=== PATIENT | female | born 1980 | race Caucasian/White ===

== ENCOUNTER → 2022-07-19 | Outpatient (CLI) | payer MEDICAID, SELFPAY ==
--- NOTE | 2022-07-19 09:55 | ART_ITS ---
Reason For Study: Evaluation for Thoracic Outlet Syndrome Procedure A bilateral upper extremity continuous wave Doppler with analog waveform analysis and segmental pressures. Evaluation for Thoracic Outlet Syndrome. Left Segmental Pressures Left brachial= 132mmHg. Left forearm by way of the radial artery = 137mmHg. Left radial= 155mmHg. Left ulnar= 155mmHg. Left digit = 141 mmHg. The left ulnar waveforms are triphasic. The left radial waveforms are triphasic. The left brachial waveforms are triphasic. Right Segmental Pressures Right brachial= 133mmHg. Right forearm pressure by way of the radial artery = 141mmHg. Right radial= 159mmHg. Right ulnar= 165mmHg. Right digit = 134 mmHg. The right ulnar waveforms are triphasic. The right radial waveforms are triphasic. The right brachial waveforms are triphasic. Indices The right wrist-brachial index by radial artery is 1.17. The right wrist-brachial index by ulnar artery is 1.17. The left wrist-brachial index by radial artery is 1.20. The left wrist-brachial index by ulnar artery is 1.24. VL/Upper Extremity Arterial Study Interpretation Summary Right wrist-brachial index 1.17, normal. PVR/Doppler waveforms and digit index normal at baseline. Right arm waveforms severely diminished in symptomatic position. Left wrist brachial index 1.24, normal. PVR/Doppler waveforms and digit index n ormal at baseline. Left arm waveforms normal with maneuvers. Ordering Physician: Herman Curiel Referring Physician: Herman Curiel DO Performed By: Stew uBrk, RVT
== END | disposition home or self-care (01) ==
LOC: CVS 09:53
PROVIDERS: Referring Provider Orthopaedic Surgery; Visit Provider Orthopaedic Surgery
DX: G54.0 Brachial plexus disorders (principal)
CPT/HCPCS: 93923

== ENCOUNTER 2022-08-23 12:56 | Outpatient (RCR) | payer MEDICAID, SELFPAY | END 2022-09-02 23:59 | LOC: NS 12:56 | PROVIDERS: Referring Provider Orthopaedic Surgery; Visit Provider Orthopaedic Surgery | DX: Z71.3 Dietary counseling and surveillance (principal); E66.9 Obesity, unspecified; Z68.43 Body mass index [BMI] 50.0-59.9, adult | CPT/HCPCS: 97802 ==

== ENCOUNTER → 2022-08-24 | Outpatient (CLI) | payer MEDICAID, SELFPAY ==
--- NOTE | 2022-08-24 10:03 | VDUE_ITS ---
Reason For Study: Swelling Right Proximal Left Proximal Right jugular vein is spontaneous, widely Left subclavian vein is spontaneous, widely patent, phasic, with no intraluminal patent, phasic, with no intraluminal echogenicity noted. echogenicity noted. Right subclavian vein is spontaneous, widely patent, phasic, with no intraluminal echogenicity noted. Right Lower Arm Right radial vein is compressible. Right ulnar vein is compressible. Right Arm Right axillary vein is spontaneous, patent, phasic, competent, compressible and demonstrates augmentation. Right brachial vein is compressible. Right cephalic vein is compressible. Right basilic vein is compressible. VL/Venous Duplex US, Unilateral Interpretation Summary Deep veins of the right upper extremity are patent and compressible segmentally . There is no evidence of deep vein thrombosis. Superficial veins of the right upper extremity are patent and compressible segm entally. There is no evidence of superficial vein thrombosis. Ordering Physician: Georgie West Referring Physician: Georgie West Performed By: Stew Burk RVT ???
== END | disposition home or self-care (01) ==
PROVIDERS: Referring Provider Physician Assistant; Visit Provider Physician Assistant
DX: M79.601 Pain in right arm (principal); M79.89 Other specified soft tissue disorders
CPT/HCPCS: 93971

== ENCOUNTER → 2022-08-27 | Outpatient (CLI) | payer MEDICAID, SELFPAY ==
[2022-08-24 11:27] LABS: EST Glomerular Filtration Rate 98 mL/min (>60); Est Glom Filt Rate - Afr Amer 119 mL/min (>60)
--- NOTE | 2022-08-27 08:16 | MRI_ITS ---
INDICATION: pain EXAMINATION: MRI - LEFT MR Knee W/O Contrast TECHNIQUE: Multiplanar and multisequence MR images of the LEFT knee. IV Contrast Dosage and Agent: None. COMPARISON: None. FINDINGS: BONE: There is a mild osteoarthritis in the medial lateral compartments. There is severe chondromalacia and joint space narrowing subjacent to the lateral patellar facet. JOINT: There is a moderate suprapatellar joint effusion extending to the superior lateral lateral recess. Within this region there are findings consistent with either multiple foci of hemorrhage or loose bodies. These measure up to 1 cm AP by 0.7 cm transverse. Synovial proliferation would BE an additional consideration. MUSCLES: Unremarkable. MENISCI: Mild myxoid change posterior horn. Anterior horn medial meniscus is intact. Lateral meniscus normal. CRUCIATE LIGAMENTS: Anterior and posterior cruciate ligaments are intact. COLLATERAL LIGAMENTS: Medial collateral ligament and lateral collateral ligamentous complex, inclusive of the popliteal tendon, are intact. CARTILAGE: Articular cartilage intact. OTHER SOFT TISSUES: Moderate subcutaneous edema anterior to the distal patellar tendon. MRI/Lower Ext Joint Only (Routine) IMPRESSION: Joint effusion extending into the suprapatellar bursa laterally with multiple loose bodies or foci of hemorrhage within this joint effusion. Subcutaneous edema anterior to the distal patellar tendon. Tricompartmental chondromalacia and osteoarthritis as above. Electronically Signed: Marquis Acosta MD, FLAKO at 12:41 EDT ,
== END | disposition home or self-care (01) ==
LOC: MRI 08:07
PROVIDERS: Physician Assistant; Visit Provider Orthopaedic Surgery
DX: M23.92 Unspecified internal derangement of left knee (principal); G54.0 Brachial plexus disorders; I10 Essential (primary) hypertension
CPT/HCPCS: 36415; 73721; 82565

== ENCOUNTER → 2022-09-12 | Outpatient (CLI) | payer MEDICAID, SELFPAY ==
--- NOTE | 2022-09-12 17:46 | CT_ITS ---
EXAM: CT ANGIOGRAPHY CHEST WITHOUT AND WITH INTRAVENOUS CONTRAST CLINICAL INDICATION: Possible thoracic outlet syndrome, right-sided -- Please place IV/inject left arm to reduce artifact TECHNIQUE: Helically acquired angiography images were obtained of the chest without and with intravenous contrast. This CT exam was performed using one or more of the following dose reduction techniques: automated exposure control, adjustment of the mA and/or kV according to patient size, and/or use of iterative reconstruction technique. This report was created using [email or web address] report generation technology. MIP reconstructed images were created and reviewed. CONTRAST: 100 cc of Isovue-370 IV. RADIATION DOSE: CTDIvol = 17.41 mGy, DLP = 540.04 mGy-cm. COMPARISON: None. FINDINGS: PULMONARY ARTERIES: Unremarkable. Normal in caliber. No evidence of pulmonary embolism. AORTA: Unremarkable. Normal in caliber. No evidence of dissection. GREAT VESSELS OF AORTIC ARCH: Unremarkable. Normal in caliber. No evidence of dissection. LUNGS AND PLEURAL SPACES: Unremarkable. No mass. No consolidation or edema. No pleural effusion or thickening. No pneumothorax. HEART: Coronary artery calcifications. No pericardial effusion. No signs of right heart strain, ratio of right ventricle to left ventricle measures less than 1. MEDIASTINUM: Unremarkable. No mediastinal or hilar adenopathy. Esophagus is unremarkable. No hiatal hernia. THYROID: Unremarkable. No thyroid lesions. BONES/JOINTS: Unremarkable. No suspicious lytic or blastic abnormality. CT/CTA Chest W/WO Contrast IMPRESSION: 1. No pulmonary embolism or dissection. 2. Coronary artery disease. Electronically Signed: Jose Ceballos MD at 23:11 EDT ,
== END | disposition home or self-care (01) ==
LOC: CT 17:45
PROVIDERS: Referring Provider Physician Assistant; Visit Provider Physician Assistant
DX: G54.0 Brachial plexus disorders (principal)
CPT/HCPCS: 71275; Q9967

== ENCOUNTER 2022-12-30 17:35 | Emergency (ER) | payer MEDICAID, SELFPAY ==
[2022-12-30 17:36] VITALS: BP 130/74; PULSE 73; RESP 18; TEMP 36.2; O2SAT 99; BMI 58.1
--- NOTE | 2022-12-30 19:01 | RAD_ITS ---
INDICATION: injury EXAMINATION/TECHNIQUE: X-RAY - LEFT XR Elbow Min 3 Views COMPARISON: None FINDINGS: SOFT TISSUES: No soft tissue swelling or gas. No radiopaque foreign body. BONES/JOINTS: There is no displacement of the anterior or posterior fat pads. No acute fracture or subluxation. Normal alignment. Preservation of the joint space. No sclerotic or destructive changes observed. RAD/Elbow min 3 Views IMPRESSION: Negative. Electronically Signed: Alex Fisher MD at 19:43 EDT ,
[2022-12-30] MEDS: Ketorolac 15 MG/ML Vial 30 MG IM (19:09)
--- NOTE | 2022-12-30 19:18 | RAD_ITS ---
INDICATION: Injury, left shoulder pain EXAMINATION/TECHNIQUE: X-RAY - LEFT XR Shoulder Min 2 Views 2 VIEWS COMPARISON: None FINDINGS: SOFT TISSUES: No soft tissue swelling or gas. No radiopaque foreign body. BONES/JOINTS: No acute fracture or subluxation. The humeral head is seated within the acetabulum. Coracoclavicular and acromioclavicular relationships are maintained. No sclerotic or destructive changes observed. RAD/Shoulder min 2 Views IMPRESSION: No acute abnormal finding. Exam complicated by photon starvation. Electronically Signed: Alex Fisher MD at 19:42 EDT ,
--- NOTE | 2022-12-30 19:26 | EDS_ITS ---
HPI <BRYNN Giraldo - Last Filed: 12/30/22 20:02> History of Present Illness Chief Complaint: Fall Narrative Narrative: Patient presenting today for evaluation after a mechanical fall that occurred this evening. She was try to get into her bathtub when her left foot caught the edge of the bathtub and she fell inside, catching herself with an outstretched left hand but hitting her elbow at the bottom of the bathtub. She reports pain to her left elbow, left shoulder, left side of her neck, and left side of her back. She denies hitting her head and there was no loss of consciousness. She is not on any blood thinner. She denies any other injury. [facility] <BRYNN Giraldo - Last Filed: 12/30/22 20:02> [facility] Medical History Cervical radiculopathy Cervical strain Home Medications metaxalone 400 mg tablet 400 mg PO TID PRN muscle pain #30 tabs 05/25/22 [Rx Last Taken Unknown] cyclobenzaprine 10 mg tablet 10 mg PO TID PRN muscle spasm 06/15/22 [History Last Taken Unknown] gabapentin 400 mg capsule (Neurontin) 400 mg PO DAILY 06/15/22 [History Last Taken Unknown] hydroxychloroquine 200 mg tablet (Plaquenil) 200 mg PO BID 06/15/22 [History Last Taken Unknown] lisinopril 10 mg tablet 10 mg PO DAILY 06/15/22 [History Last Taken Unknown] lorazepam 1 mg tablet (Ativan) 1 mg PO DAILY PRN 06/15/22 [History Last Taken Unknown] propranolol 80 mg capsule,extended release 24 hr (Inderal XL) 80 mg PO DAILY 06/15/22 [History Last Taken Unknown] verapamil 120 mg 24 hr capsule,extended release 120 mg PO DAILY 06/15/22 [History Last Taken Unknown] hydrocodone-acetaminophen 5-325mg 5mg-325mg 1 tab PO Q4H PRN PRN Pain 3 days #10 TABLETS 12/30/22 [Rx Last Taken Unknown] Allergy/AdvReac Type Severity Reaction Status Date / Time Penicillins Allergy Severe Hives Verified 09/29/22 13:26 Surgical History H/O hernia repair Hx of cholecystectomy Status post right knee replacement Social History Smoking Status: Never smoker alcohol intake: current alcohol intake frequency: holidays/special occasions only substance use type: does not use ROS <BRYNN Giraldo - Last Filed: 12/30/22 20:02> ROS ED Constitutional Constitutional ED: Denies chills or fever(s) Eyes Eyes: Denies change in vision Cardiovascular Cardiovascular: Denies chest pain or palpitations Respiratory/Chest Respiratory/Chest: Denies cough or dyspnea Gastrointestinal Gastrointestinal: Denies abdominal pain, nausea or vomiting Genitourinary Genitourinary ED: Denies dysuria, hematuria or urinary urgency Musculoskeletal Musculoskeletal: Reports arthralgias, back pain, myalgias and neck pain Integumentary Denies Abrasions Neurologic Neurologic: Denies headache(s), paresthesias or weakness EXAM <BRYNN Giraldo - Last Filed: 12/30/22 20:02> Physical Exam Const Vital Signs: 12/30/22 17:36 12/30/22 18:48 12/30/22 20:23 Temperature 97.1 F L Temperature Source Temporal Pulse Rate 73 80 Respiratory Rate 18 16 Respiratory Effort Normal Non-Labored Blood Pressure 130/74 H 128/74 H Blood Pressure Mean 92 92 Pulse Ox 99 98 Oxygen Delivery Method Room Air Room Air Room Air Positive well nourished, well developed and no apparent distress General Appearance ED: well developed HEENT Reports normocephalic and head/scalp atraumatic Mouth ED: Yes moist mucous membranes normal Eyes PERRL and EOMs intact bilaterally Neck full ROM and supple Neck Narrative: Left-sided trapezius muscle tenderness to palpation. No midline cervical tenderness to palpation Chest Wall inspection of chest normal Resp normal respiratory effort and clear to auscultation bilaterally Cardio regular rate and regular rhythm GI soft to palpation, non-tender, non-distended and no masses Back/Spine normal ROM, normal to inspection and no thoracic nor lumbar tenderness Back/Spine Narrative: Left-sided thoracic paraspinal muscle tenderness to palpation No midline tenderness to the thoracic or lumbar spine. Extremity normal to inspection Extremity Narrative: Pain to palpation to the left elbow with limited range of motion due to pain, pain to palpation to the left shoulder with limited range of motion due to the pain. Radial pulses 2+ and equal bilaterally, good capillary refill, sensation intact distally. Neuro oriented x3, CN's II-XII intact bilaterally, moves all extremities, no focal motor deficits and no sensory deficits noted Sensorium / Orientation: awake and alert Psych mental status grossly normal and thought process normal Skin no rashes or lesions noted and no wounds <Dr. Jose Durham MD - Last Filed: 12/30/22 23:36> Physical Exam Const Vital Signs: 12/30/22 17:36 12/30/22 18:48 12/30/22 20:23 Temperature 97.1 F L Temperature Source Temporal Pulse Rate 73 80 Respiratory Rate 18 16 Respiratory Effort Normal Non-Labored Blood Pressure 130/74 H 128/74 H Blood Pressure Mean 92 92 Pulse Ox 99 98 Oxygen Delivery Method Room Air Room Air Room Air MDM <BRYNN Giraldo - Last Filed: 12/30/22 20:02> [facility] Narrative Medical decision making narrative: Patient presenting for evaluation after a mechanical fall that occurred earlier this evening while she was try to get into a bathtub. She is pain to her left elbow, left shoulder, neck, and back. Left elbow is painful to palpation with limited range of motion, left shoulder also painful to palpation with limited range of motion due to the pain. Patient does not have any midline cervical, thoracic, lumbar, or sacral spine tenderness. She does have left sided trapezius tenderness to her neck as well as left paraspinal tenderness to her thoracic spine. She was given Toradol here for pain and x-ray of the left shoulder and left elbow obtained to rule out fracture and dislocation. She did not hit her head, there was no loss of consciousness. X-ray of the left elbow interpreted by the attending ED physician does show a small fracture, radiologist did not interpret this. However, she will be given orthopedic follow-up and a sling. She has been given RICE instructions and will be given a prescription for [place] as well. She has been given additional pain control here and will be discharged with stable condition. She is comfortable with plan. Radiography X-Ray: Read by ED Physician and Read by Radiologist Diagnostic Testing: Clinical Impression(s) from Imaging Studies Elbow X-Ray 12/30/22 19:01 IMPRESSION: Negative. Electronically Signed: Alex Fisher MD at 19:43 EDT , Shoulder X-Ray 12/30/22 19:18 IMPRESSION: No acute abnormal finding. Exam complicated by photon starvation. Electronically Signed: Alex Fisher MD at 19:42 EDT , <Dr. Jose Durham MD - Last Filed: 12/30/22 23:36> [facility] Narrative Medical decision making narrative: Patient presenting for evaluation after a mechanical fall that occurred earlier this evening while she was try to get into a bathtub. She is pain to her left elbow, left shoulder, neck, and back. Left elbow is painful to palpation with limited range of motion, left shoulder also painful to palpation with limited range of motion due to the pain. Patient does not have any midline cervical, thoracic, lumbar, or sacral spine tenderness. She does have left sided trapezius tenderness to her neck as well as left paraspinal tenderness to her thoracic spine. She was given Toradol here for pain and x-ray of the left shou lder and left elbow obtained to rule out fracture and dislocation. She did not hit her head, there was no loss of consciousness. X-ray of the left elbow interpreted by the attending ED physician does show a small fracture, radiologist did not interpret this. However, she will be given orthopedic follow-up and a sling. She has been given RICE instructions and will be given a prescription for [place] as well. She has been given additional pain control here and will be discharged with stable condition. She is comfortable with plan. Patient seen and evaluated with MERE. I personally interviewed and examined the patient. I was involved in all aspects of patient's orders, interpretation of results, and treatment. Patient presents after mechanical fall. She injured her left elbow. 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 She has pain to palpation over the radial head. Axillary, median, radial and ulnar function intact. There is minimal discomfort over the medial lateral epicondyle. Is no pain the patient over the olecranon process. She also has pain outpatient over the arm. Patient is reluctant to use the left upper extremity. Three-view x-ray of the elbow and three-view x-ray of the shoulder were obta ined. The shoulder x-ray reveals no fracture, subluxation or dislocation. There is no evidence of fracture of the clavicle or proximal humerus. Three-view x-ray of the elbow reveals a small avulsion fracture of the coronoid process. There appears to be 6 slight anterior fat pad. There is no posterior fat-pad. This is where she is tender. As patient is reluctant to supinate pronate or extend suspect that she has a small avulsion fracture. Patient was placed in sling and swath and referred to orthopedist on-call, Dr. Jose Chavez Radiography Diagnostic Testing: Clinical Impression(s) from Imaging Studies Elbow X-Ray 12/30/22 19:01 IMPRESSION: Negative. Electronically Signed: Alex Fisher MD at 19:43 EDT , Shoulder X-Ray 12/30/22 19:18 IMPRESSION: No acute abnormal finding. Exam complicated by photon starvation. Electronically Signed: Alex Fisher MD at 19:42 EDT , Discharge Plan Triage Chief Complaint: Fall ED Midlevel Provider: Yoselin Bridges ED Provider: Jose Durham Dx/Rx/DC Orders Clinical Impression: Elbow fracture, left, Neck muscle strain, Contusion of left shoulder, Strain of thoracic back region, Fall Instructions: ED Elbow Fracture Prescriptions: New hydrocodone-acetaminophen 5-325 mg tablet 1 tab PO Q4H PRN PRN (Reason: Pain) 3 Days Qty: 10 0RF No Action metaxalone 400 mg tablet 400 mg PO TID PRN (Reason: muscle pain) Qty: 30 0RF verapamil 120 mg capsule,ext rel. pellets 24 hr 120 mg PO DAILY gabapentin [Neurontin] 400 mg capsule 400 mg PO DAILY hydroxychloroquine [Plaquenil] 200 mg tablet 200 mg PO BID Inderal XL 80 mg capsule,extended release 24hr 80 mg PO DAILY lisinopril 10 mg tablet 10 mg PO DAILY cyclobenzaprine 10 mg tablet 10 mg PO TID PRN (Reason: muscle spasm) lorazepam [Ativan] 1 mg tablet 1 mg PO DAILY PRN Primary Care Provider: PodlogRebecca neely NP Referrals: Jose Chavez DO [Med Staff - Active Staff] - 5-7 Days PodRebecca granda NP, [facility] [Primary Care Provider] - Activity Restrictions/Additional Instructions: Please ice your elbow several times a day for the next few days. Follow-up with orthopedics. Disposition Disposition: Home, Self Care Discharge Date/Time: 12/30/22 20:24
[2022-12-30] MEDS: HYDROcodone Bitartrate/Apap 5/325 Tablet PO (20:15)
[2022-12-30 20:23] VITALS: BP 128/74; PULSE 80; RESP 16; O2SAT 98
== END 2022-12-30 20:24 | disposition home or self-care (01) ==
PROVIDERS: Emergency Provider Emergency Medicine; PCP Nurse Practitioner Primary Care; Visit Provider Emergency Medicine
DX: S42.402A Unspecified fracture of lower end of left humerus, initial encounter for closed fracture (principal); S16.1XXA Strain of muscle, fascia and tendon at neck level, initial encounter; S40.012A Contusion of left shoulder, initial encounter; S39.012A Strain of muscle, fascia and tendon of lower back, initial encounter; W19.XXXA Unspecified fall, initial encounter
CPT/HCPCS: 73030; 73080; 96372; 99282

== ENCOUNTER 2023-02-27 20:21 | Emergency (ER) | payer MEDICAID, SELFPAY ==
[2023-02-27 20:22] VITALS: BP 168/99; PULSE 77; RESP 20; TEMP 36.3; O2SAT 100; BMI 58.6
--- NOTE | 2023-02-27 20:30 | RAD_ITS ---
STUDY: X-RAY CHEST REASON FOR EXAM: Female, 43 years old. SOB TECHNIQUE: PA and lateral views of the chest. COMPARISON: None. FINDINGS: The lungs are clear and expanded. There is no demonstrated pleural abnormality. Normal size heart. Normal mediastinum and chari. Normal visualized pulmonary arteries. Normal visualized aortic arch and descending thoracic aorta. Normal visualized thoracic spine. Normal visualized ribs, clavicles, and shoulders. There is no demonstrated abnormality of the visualized soft tissue structures of the upper abdomen. RAD/Chest PA and Lateral IMPRESSION: Normal x-ray examination of the chest. Electronically Signed: Anthony Barriga MD at 20:58 EDT ,
--- NOTE | 2023-02-27 21:56 | EDS_ITS ---
HPI History of Present Illness Chief Complaint: Shortness of Breath [facility] Medical History (Updated 02/09/23 @ 09:51 by Alex George MD) Cervical radiculopathy Cervical strain Left elbow pain Left shoulder pain Home Medications gabapentin 400 mg capsule (Neurontin) 400 mg PO DAILY 06/15/22 [History Last Taken Unknown] hydroxychloroquine 200 mg tablet (Plaquenil) 200 mg PO BID 06/15/22 [History Last Taken Unknown] lisinopril 10 mg tablet 10 mg PO DAILY 06/15/22 [History Last Taken Unknown] propranolol 80 mg capsule,extended release 24 hr (Inderal XL) 80 mg PO DAILY 06/15/22 [History Last Taken Unknown] verapamil 120 mg 24 hr capsule,extended release 120 mg PO DAILY 06/15/22 [History Last Taken Unknown] hydrocodone-acetaminophen 5-325mg 5mg-325mg 1 tab PO Q4H PRN PRN Pain 3 days #10 TABLETS 12/30/22 [Rx Last Taken Unknown] lorazepam 1 mg tablet 1 mg PO DAILY PRN 02/09/23 [History Last Taken Unknown] pramipexole 0.5 mg tablet (Mirapex) 0.5 mg PO QHS 02/09/23 [History Last Taken Unknown] venlafaxine 75 mg capsule,extended release 24 hr mg PO 02/09/23 [History Last Taken Unknown] Allergy/AdvReac Type Severity Reaction Status Date / Time Penicillins Allergy Severe Hives Verified 02/27/23 20:24 Surgical History H/O hernia repair Hx of cholecystectomy Status post right knee replacement Social History Smoking Status: Never smoker alcohol intake: current alcohol intake frequency: holidays/special occasions only substance use type: does not use EXAM Physical Exam Const Vital Signs: 02/27/23 20:22 02/27/23 21:36 02/27/23 20:24 Temperature 97.4 F L Temperature Source Temporal Pulse Rate 77 Respiratory Rate 20 H Respiratory Effort Normal Blood Pressure 168/99 H Blood Pressure Mean 122 Pulse Ox 100 Oxygen Delivery Method Room Air Room Air Room Air 02/27/23 22:42 Temperature Temperature Source Pulse Rate Respiratory Rate Respiratory Effort Blood Pressure Blood Pressure Mean Pulse Ox Oxygen Delivery Method Room Air MDM MDM MDM Narrative Medical decision making narrative: HISTORY OF PRESENT ILLNESS: 43-year-old female here with acute onset of shortness of breath. States this happened approximately 2 hours prior to arrival notes acute shortness of breath and chest tightness. Denies chest pain at this time. States symptoms have improved. States she got really worked up. The patient denies recent surgery in the last 4 weeks or immobilization in the last 3 days, denies previous diagnosis of DVT or PE, hemoptysis, unilateral leg swelling or malignancy with treatment the last 6 months or palliative. No estrogen use noted. She is a non-smoker. She denies any bleeding diathesis. Denies any vomiting. Denies recent illnesses. Denies any sick contacts REVIEW OF SYSTEMS: Pertinent positives: Shortness of breath, chest tightness Pertinent negatives: Abdominal pain, vomiting, focal weakness, unilateral leg swelling PHYSICAL EXAM: Nursing triage notes reviewed, Vital signs reviewed Constitutional: please see [facility] HENT: MMM Eyes: Pupils equal round and reactive to light, Extraocular muscles intact Neck: No stridor, no JVD, full neck ROM Lungs: Clear to auscultation, No wheezing or rales. No increased work of breathing, no conversational dyspnea, no accessory muscle use, no nasal flaring. No respiratory distress noted Heart: Regular rate and rhythm, No murmurs, No rubs and No gallops, 2+ distal pulses (radial, femoral, posterior tibial) in all extremities Abdomen: Soft, there is no tenderness, rigidity, rebound or guarding, no obvious peritoneal signs, no palpable pulsatile abdominal masses, no auscultated abdominal bruit : No CVAT Extremities: No edema Neuro: Alert and oriented x3, neuro exam at baseline, cranial nerves II through XII are intact. No pain with extraocular muscle movement. There is negative test of skew. 5 of 5 strength in upper and lower extremities in flexion extension. Intact sensation to light touch in upper and lower extremity dermatomes. No truncal or extremity ataxia. No dysdiadochokinesia. Normal gait. 2+ reflexes in upper and lower extremities. No meningeal signs. Negative Babinski. NIH of 0. Skin: No rash or lesions noted MEDICAL DECISION MAKING: Chief Complaint: Shortness of breath External records reviewed: Imaging reviewed: CT of the chest from September 2022 shows no PE or dissection Factors affecting care: Hypertension, history of PCOS, anxiety Sjogren's syndrome and fibromyalgia Social determinants of health: Denies smoking History obtained from others: Patient's Consults: none MDM Narrative: Patient was hemodynamically stable, afebrile, nontoxic-appearing. Lungs were clear. I considered the following differential diagnosis: Pneumonia, PE, CHF, ACS, arrhythmia, anemia I considered pulmonary embolism however patient lower as well score and as such have a low suspicion for PE. ALL IMAGES (IF OBTAINED) HAVE BEEN PERSONALLY REVIEWED AND INTERPRETED BY MYSELF. EKG with normal sinus rhythm, normal axis, no intervals, no STEMI Chest x-ray by my read shows no evidence of pneumonia, pneumothorax or heart failure CBC with leukocytosis suggestive of systemic inflammation, no anemia or thrombocytopenia noted BMP with hyponatremia, no other significant electrolyte abnormalities, no anion gap to suggest endorgan hypoperfusion, no MIKE Troponin is negative, no evidence of myocardial ischemia COVID-negative I have personally reviewed the patient's chest x-ray. Chest x-ray is unremarkable for pulmonary edema, pneumothorax, pneumonia or focal cardiopulmonary abnormality. The amalgamation of the patient's labs images do not suggest a life or limb threatening process. Patient is appropriate for discharge home with close PCP and outpatient follow-up. The patient and/or family, caregivers express understanding. The patient and/or family, caregivers agrees with the plan. Shared decision making: I will have a discussion with the patient and or visitors regarding risk/benefits of further testing or admission. They will be made aware of of the risk/benefits inherent in this decision they will be given the opportunity to voice understanding. Total critical care time today provided was at least 0 minutes. This excludes separately billable procedures. Critical care time (if documented) is secondary to the patient having high probability of clinically significant/life threatening deterioration in the patient's condition which required my urgent intervention. Impression: 1. Dyspnea 2. Leukocytosis 3. Hyponatremia Dispo: Discharge Lab Data Labs: Laboratory Results - last 24 hr 02/27/23 22:32 WBC 12.1 H RBC 4.42 Hgb 12.9 Hct 39.0 MCV 88.2 MCH 29.2 MCHC 33.1 RDW Std Deviation 46.0 H RDW Coeff of Tiki 14.2 Plt Count 365 MPV 8.7 Immature Gran % (Auto) 0.200 Neut % (Auto) 66.4 Lymph % (Auto) 24.9 [place] % (Auto) 6.5 Eos % (Auto) 1.6 Baso % (Auto) 0.4 Absolute Neuts (auto) 8.0 H Absolute Lymphs (auto) 3.01 Nucleated RBC % 0 Sodium 135 L Potassium 3.8 Chloride 100 Carbon Dioxide 30.0 Anion Gap 5 BUN 15 Creatinine 0.94 Estim Creat Clear Calc 68.01 Est GFR (MDRD) Af Amer 84 Est GFR (MDRD) Non-Af 70 BUN/Creatinine Ratio 16.0 Glucose 105 Calcium 9.1 Troponin I High Sens 19 Radiography Diagnostic Testing: Clinical Impression(s) from Imaging Studies Chest X-Ray 02/27/23 20:30 IMPRESSION: Normal x-ray examination of the chest. Electronically Signed: Anthony Barriga MD at 20:58 EDT , Discharge Plan Triage Chief Complaint: Shortness of Breath ED Provider: Sg Velez Dx/Rx/DC Orders Prescriptions: No Action verapamil 120 mg capsule,ext rel. pellets 24 hr 120 mg PO DAILY gabapentin [Neurontin] 400 mg capsule 400 mg PO DAILY hydroxychloroquine [Plaquenil] 200 mg tablet 200 mg PO BID Inderal XL 80 mg capsule,extended release 24hr 80 mg PO DAILY lisinopril 10 mg tablet 10 mg PO DAILY lorazepam 1 mg tablet 1 mg PO DAILY PRN venlafaxine 75 mg capsule,extended release 24hr PO Patient Comments: take 1 capsule by mouth once daily pramipexole [Mirapex] 0.5 mg tablet 0.5 mg PO QHS hydrocodone-acetaminophen 5-325 mg tablet 1 tab PO Q4H PRN PRN (Reason: Pain) 3 Days Qty: 10 0RF Primary Care Provider: Rebecca Mcintyre NP Referrals: Rebecca Mcintyre NP, [employer] [employer] [Primary Care Provider] -
[2023-02-27 22:45] LABS: Absolute Lymphocyte Count 3.01 X10^3/uL (0.83-4.51); Basophil# 0.05 X10^3/uL; Basophil% 0.4 % (0-1); Eosinophil# 0.19 X10^3/uL; Eosinophils% 1.6 % (0-5); Hemoglobin 12.9 g/dL (12.0-15.0); Lymphocyte # 3.01 X10^3/ul (0.83-4.51); Lymphocyte % 24.9 % (19-41); Mean Corp Hgb Conc 33.1 g/dL (32-36); Mean Corpuscular Hgb 29.2 pg (27.0-32.0); Mean Corpuscular Volume 88.2 fL (81-99); Mean Platelet Vol. 8.7 fl (6.2-12.0); Monocyte# 0.79 X10^3/uL; Monocyte% 6.5 % (0-10); NRBC Flagged by Analyzer 0 % (0-5); Neutrophil # 8.01 X10^3/uL (2.7-7.7); Neutrophil % 66.4 % (47-70); Platelet Count 365 K/mm3 (150-450); RBC Distribution Width CV 14.2 % (11.6-14.6); Red Blood Count 4.42 M/mm3 (4.2-5.4); White Blood Count 12.1 K/mm3 (4.4-11.0)
[2023-02-27 23:15] LABS: Anion Gap 5 (5-15); BUN 15 mg/dL (7-18); Calcium,Total 9.1 mg/dL (8.5-10.1); Chloride 100 mmol/L (98-107); Creatinine, Serum 0.94 mg/dL (0.55-1.02); EST Glomerular Filtration Rate 70 mL/min (>60); Est Glom Filt Rate - Afr Amer 84 mL/min (>60); Estimated Creatinine Clearance 68.01 ml/min; Glucose 105 mg/dL (74-106); Potassium 3.8 mmol/L (3.5-5.1); Sodium Level 135 mmol/L (136-145); Troponin-I HS 19 pg/mL (3.0-54.0)
[2023-02-28 00:18] VITALS: PULSE 88; RESP 16; O2SAT 100
== END 2023-02-28 00:19 | disposition home or self-care (01) ==
PROVIDERS: Emergency Provider Emergency Medicine; PCP Nurse Practitioner Primary Care; Visit Provider Emergency Medicine
DX: R06.00 Dyspnea, unspecified (principal); D72.829 Elevated white blood cell count, unspecified; E87.1 Hypo-osmolality and hyponatremia
CPT/HCPCS: 71046; 80048; 84484; 85025; 87811; 93005; 99283

== ENCOUNTER → 2023-08-17 | Outpatient (CLI) | payer MEDICAID, SELFPAY ==
--- NOTE | 2023-08-17 15:26 | MRI_ITS ---
STUDY: MRI LEFT SHOULDER REASON FOR EXAM: Female, 43 years old. Complete rotator cuff tear. TECHNIQUE: Standardized fat and water weighted pulse sequences were obtained in all 3 orthogonal planes. COMPARISON: Left shoulder radiographs dated 02/09/2023. FINDINGS: There is mild supraspinatus, infraspinatus, and subscapularis tendinosis without a full-thickness tear. Normal teres minor tendon. Normal supraspinatus muscle. Normal infraspinatus muscle. Normal subscapularis muscle. Normal teres minor muscle. There is a 3 mm subchondral cyst in the superior-posterior glenoid (coronal T2 series 8 image 8). Normal humeral head and visualized proximal humerus. Normal biceps labral complex. Normal intracapsular long biceps tendon. Normal labrum. Normal capsulo-ligamentous complex. Normal rotator interval. There are postoperative changes from prior distal clavicle resection. There is a Type II acromial morphology (curved), with a neutral orientation. There is no subacromial-subdeltoid bursal fluid. Normal visualized coracohumeral and coracoacromial ligaments. Normal quadrilateral space. Normal axillary space. Normal deltoid muscle. Normal trapezius muscle. MRI/Upper Ext Joint Only(Routine) IMPRESSION: Mild supraspinatus, infraspinatus, and subscapularis tendinosis without a full-thickness rotator cuff tear. 3 mm subchondral cyst in the superior-posterior glenoid. Postoperative changes from prior distal clavicle resection. Electronically Signed: Taj Duke MD at 8:44 EDT ,
== END | disposition home or self-care (01) ==
LOC: MRI 15:12
PROVIDERS: PCP Nurse Practitioner Primary Care
DX: M75.122 Complete rotator cuff tear or rupture of left shoulder, not specified as traumatic (principal)
CPT/HCPCS: 73221

== ENCOUNTER 2023-11-24 22:53 | Emergency (ER) | payer MEDICAID, SELFPAY ==
[2023-11-24 22:54] VITALS: BP 158/118; PULSE 126; RESP 22; TEMP 36.2; O2SAT 96; BMI 58.4
[2023-11-24] MEDS: 0.9% Normal Saline (1000mL) 1,000 ML 999 ML IV (23:48)
[2023-11-24] MEDS: DiphenhydrAMINE 50 MG/ML Syringe 25 MG IV (23:48)
[2023-11-24] MEDS: Ketorolac 30 MG/ML Syringe IV (23:48)
[2023-11-24] MEDS: proCHLORPERazine 10 MG/2 ML Vial IV (23:48)
[2023-11-24 23:57] LABS: Absolute Lymphocyte Count 0.52 X10^3/uL (0.83-4.51); Absolute Neutrophil Count 11.6 X10^3/uL (2.0-7.7); Basophil# 0.04 X10^3/uL; Basophil% 0.3 % (0-1); Eosinophil# 0.08 X10^3/uL; Eosinophils% 0.6 % (0-5); Hematocrit 45.8 % (37-47); Hemoglobin 14.9 g/dL (12.0-15.0); Lymphocyte # 0.52 X10^3/ul (0.83-4.51); Lymphocyte % 4.1 % (19-41); Mean Corp Hgb Conc 32.5 g/dL (32-36); Mean Corpuscular Hgb 28.1 pg (27.0-32.0); Mean Corpuscular Volume 86.3 fL (81-99); Mean Platelet Vol. 9.5 fl (6.2-12.0); Monocyte# 0.49 X10^3/uL; Monocyte% 3.8 % (0-10); NRBC Flagged by Analyzer 0 % (0-5); Neutrophil # 11.55 X10^3/uL (2.7-7.7); Neutrophil % 90.8 % (47-70); POSITIVE DIFFERENTIAL YES; Platelet Count 393 K/mm3 (150-450); RBC Distribution Width SD 44.5 fl (35.1-43.9); Red Blood Count 5.31 M/mm3 (4.2-5.4); White Blood Count 12.7 K/mm3 (4.4-11.0)
[2023-11-25 00:15] LABS: AST(SGOT) 34 U/L (15-37); Alanine Aminotransfer ALT/SGPT 60 U/L (13-56); Albumin, Serum 3.7 g/dL (3.2-5.0); Alkaline Phosphatase 79 U/L (45-117); Anion Gap 9 (5-15); BUN 15 mg/dL (7-18); BUN/Creat Ratio 14.6 RATIO (10-20); Bilirubin, Direct 0.21 mg/dL (0.00-0.30); Calcium,Total 9.3 mg/dL (8.5-10.1); Chloride 104 mmol/L (98-107); Creatinine, Serum 1.03 mg/dL (0.55-1.02); EST Glomerular Filtration Rate 63 mL/min (>60); Est Glom Filt Rate - Afr Amer 76 mL/min (>60); Estimated Creatinine Clearance 107.75 ml/min; Glucose 139 mg/dL (74-106); Lipase 27 U/L (13-75); Magnesium 1.6 mg/dL (1.6-2.6); Potassium 3.9 mmol/L (3.5-5.1); Protein, Total 7.7 g/dL (6.4-8.2); Sodium Level 135 mmol/L (136-145)
[2023-11-25] MEDS: LORazepam 2 MG/ML Syringe 1 MG IV (00:42)
[2023-11-25 00:53] VITALS: BP 147/100; PULSE 117; RESP 18; O2SAT 95
--- NOTE | 2023-11-25 01:05 | EDS_ITS ---
HPI History of Present Illness Chief Complaint: Abd Pain Informant: patient Narrative Narrative: Patient is a 43-year-old female with past medical history of hypertension PCOS and fibromyalgia. She states that her son was sick with bouts of nausea vomiting diarrhea over the weekend. She states that today around afternoon/dinnertime she does generalized abdominal discomfort with bouts of nausea vomiting and loose stool. She denies any travel outside the country recent antibiotic use or livestock exposure. She does admit to sick contacts with her son. She states she has not been able to keep anything down and secondary to this comes in for evaluation [facility] Medical History (Updated 11/25/23 @ 02:[address] Jhon David, DO) Patellar instability Hypermobility syndrome Osteoarthritis Uterine fibroid History of COVID-19 Exercise-induced asthma PCOS (polycystic ovarian syndrome) Raynauds disease Sjogren syndrome with glomerular disease Left elbow pain Left shoulder pain Cervical radiculopathy Cervical strain Home Medications ?Medication ?Instructions ?Recorded ?Last Taken ?Type hydroxychloroquine 200 mg tablet 200 mg PO BID 06/15/22 Unknown History (Plaquenil) lisinopril 10 mg tablet 10 mg PO DAILY 06/15/22 Unknown History propranolol 80 mg capsule,extended 80 mg PO DAILY 06/15/22 Unknown History release 24 hr (Inderal XL) verapamil 120 mg 24 hr 120 mg PO DAILY 06/15/22 Unknown History capsule,extended release pramipexole 0.5 mg tablet (Mirapex) 0.5 mg PO QHS 02/09/23 Unknown History venlafaxine 75 mg capsule,extended 150 mg PO DAILY 02/09/23 Unknown History release 24 hr albuterol sulfate 90 mcg/actuation 2 puff inhalation Q6H PRN PRN 11/24/23 Unknown History aerosol inhaler wheezing metformin 500 mg tablet,extended 1,000 mg PO QPM 11/24/23 Unknown History release 24 hr pregabalin .ROUTE 11/24/23 Unknown History oxycodone-acetaminophen 5 mg-325 1 tab PO Q6H PRN pain 3 days #12 11/25/23 Unknown Rx mg tablet (Percocet) tabs promethazine 25 mg tablet 25 mg PO TID PRN nausea and 11/25/23 Unknown Rx vomiting #21 tabs Allergy/AdvReac Type Severity Reaction Status Date / Time Penicillins Allergy Severe Hives Verified 11/24/23 22:53 Surgical History H/O hernia repair Hx of cholecystectomy Status post right knee replacement Social History Smoking Status: Never smoker alcohol intake: current alcohol intake frequency: holidays/special occasions only substance use type: does not use ROS ROS ED Constitutional Constitutional ED: Denies chills or fever(s) ENT ENT ED: Denies sore throat Cardiovascular Cardiovascular: Denies chest pain Respiratory/Chest Respiratory/Chest: Denies cough or dyspnea Gastrointestinal Gastrointestinal: Reports abdominal pain, diarrhea, nausea and vomiting Genitourinary Genitourinary ED: Denies dysuria Musculoskeletal Musculoskeletal: Reports myalgias Integumentary Denies rash Neurologic Neurologic: Reports headache(s) Hematologic/Lymphatic Hematologic/Lymphatic: Denies easy bleeding or easy bruising EXAM Physical Exam Const Vital Signs: 11/24/23 22:54 11/25/23 00:53 11/25/23 01:25 Temperature 97.2 F L 97.8 F Temperature Source Temporal Pulse Rate 126 H 117 H 117 H Respiratory Rate 22 H 18 18 Blood Pressure 158/118 H 147/100 H 153/115 H Blood Pressure Mean 131 115 127 Pulse Ox 96 95 95 Oxygen Delivery Method Room Air Room Air Positive well nourished, well developed and obese General Appearance ED: well developed; Negative for pallor Nutritional Appearance: obese HEENT Reports dry mucous membranes HEENT Narrative: Mucous membranes are dry and tacky without tongue or lip swelling oral lesions airway edema or compromise No signs of infection noted in the posterior pharynx Mouth ED: Yes dry mucous membranes Mouth: dry mucous membranes Eyes PERRL and EOMs intact bilaterally General Eye ED: Negative for scleral icterus Neck supple Resp normal respiratory effort and clear to auscultation bilaterally Cardio regular rhythm Rate: tachycardic and other Other Details: Tachycardic rate with regular rhythm Radial and carotid pulses are equal and symmetric GI non-distended and no masses GI Narrative: Abdomen is obese soft and nondistended with hyperactive bowel sounds There is mild diffuse pain on palpation without voluntary guarding or rigidity or pulsatile mass Auscultation: hyperactive bowel sounds Palpation: soft Extremity normal to inspection Neuro oriented x3, CN's II-XII intact bilaterally and no sensory deficits noted Sensorium / Orientation: alert Motor Exam: strength 5/5 throughout Psych mental status grossly normal Skin no rashes or lesions noted and skin turgor normal General Skin Exam: Negative for jaundice or pallor MDM MDM MDM Narrative Medical decision making narrative: Patient presented to the ER hypertensive and tachycardic but has a past medical history of hypertension. She reported nausea vomiting diarrhea generalized abdominal discomfort but does have a known sick contact and her son from a few days prior. Differential diagnosis is for gastroenteritis secondary to [place] versus rotavirus with there is also concern for atypical biliary colic versus acute cholecystitis versus pancreatitis versus acute kidney injury or severe electrolyte abnormality. Patient blood work was obtained and reveals no clinically significant findings. Patient was given IV fluids as well as Toradol Benadryl Compazine and Ativan and did report improvement of symptoms and had no further bouts of vomiting while in the ER. Therefore at this time she has had improvement of symptoms with treatment overall negative workup and concern for infectious diarrhea is low I do not feel there is need for further evaluation and she is otherwise safe for discharge History & Record Review Discussion w/independent historian: Patient Lab Data Attestation: I reviewed the patient's lab results. Labs: Laboratory Results - last 24 hr 11/24/23 23:45 WBC 12.7 H RBC 5.31 Hgb 14.9 Hct 45.8 MCV 86.3 MCH 28.1 MCHC 32.5 RDW Std Deviation 44.5 H RDW Coeff of Tiki 14.0 Plt Count 393 MPV 9.5 Immature Gran % (Auto) 0.400 Neut % (Auto) 90.8 H Lymph % (Auto) 4.1 L [place] % (Auto) 3.8 Eos % (Auto) 0.6 Baso % (Auto) 0.3 Absolute Neuts (auto) 11.6 H Absolute Lymphs (auto) 0.52 L Nucleated RBC % 0 Sodium 135 L Potassium 3.9 Chloride 104 Carbon Dioxide 22.0 Anion Gap 9 BUN 15 Creatinine 1.03 H Estim Creat Clear Calc 107.75 Est GFR (MDRD) Af Amer 76 Est GFR (MDRD) Non-Af 63 BUN/Creatinine Ratio 14.6 Glucose 139 H Calcium 9.3 Magnesium 1.6 Total Bilirubin 0.70 Direct Bilirubin 0.21 AST 34 ALT 60 H Alkaline Phosphatase 79 Total Protein 7.7 Albumin 3.7 Globulin 4.0 Lipase 27 Discharge Plan Triage Chief Complaint: Abd Pain Other Complaint: Nausea/Vomiting/Diarrhea ED Provider: Jhon David Dx/Rx/DC Orders Clinical Impression: Nausea vomiting and diarrhea, Dehydration, mild, Hypertension, Fibromyalgia, History of PCOS Instructions: Dehydration, ED Gastroenteritis, Viral (Adult) Prescriptions: New promethazine 25 mg tablet 25 mg PO TID PRN (Reason: nausea and vomiting) Qty: 21 0RF oxycodone-acetaminophen [Percocet] 5-325 mg tablet 1 tab PO Q6H PRN (Reason: pain) 3 Days Qty: 12 0RF No Action verapamil 120 mg capsule,ext rel. pellets 24 hr 120 mg PO DAILY hydroxychloroquine [Plaquenil] 200 mg tablet 200 mg PO BID Inderal XL 80 mg capsule,extended release 24hr 80 mg PO DAILY lisinopril 10 mg tablet 10 mg PO DAILY venlafaxine 75 mg capsule,extended release 24hr 150 mg PO DAILY Patient Comments: take 1 capsule by mouth once daily pramipexole [Mirapex] 0.5 mg tablet 0.5 mg PO QHS pregabalin [Lyrica] .ROUTE albuterol sulfate 90 mcg/actuation HFA aerosol inhaler 2 puff inhalation Q6H PRN PRN (Reason: wheezing) metformin 500 mg tablet extended release 24 hr 1,000 mg PO QPM Primary Care Provider: Rebecca Mcintyre NP Referrals: Rebecca Mcintyre NP, [facility] [employer] [Primary Care Provider] - Activity Restrictions/Additional Instructions: Please keep yourself well-hydrated and use the medication as directed to help control your symptoms. Return to the ER should you have any further concerns Print Language: Cymraes Disposition Disposition: Home, Self Care Discharge Date/Time: 11/25/23 01:26
[2023-11-25 01:25] VITALS: BP 153/115; PULSE 117; RESP 18; TEMP 36.6; O2SAT 95
== END 2023-11-25 01:26 | disposition home or self-care (01) ==
PROVIDERS: Emergency Provider Emergency Medicine; PCP Nurse Practitioner Primary Care; Visit Provider Emergency Medicine
DX: R11.2 Nausea with vomiting, unspecified (principal); R19.7 Diarrhea, unspecified; E86.0 Dehydration; M79.7 Fibromyalgia; I10 Essential (primary) hypertension; Z79.899 Other long term (current) drug therapy; Z79.84 Long term (current) use of oral hypoglycemic drugs; Z86.16 Personal history of COVID-19
CPT/HCPCS: 80048; 80076; 83690; 83735; 85025; 96374; 96375; 96376; 99282; J7030

== ENCOUNTER → 2024-02-29 | Outpatient (CLI) | payer MEDICAID, SELFPAY ==
[2024-02-29 12:10] LABS: Cholesterol 195 mg/dL (200); High Density Lipoprotein 60 mg/dL; Triglycerides 113 mg/dL; Very Low Density Lipoprotein 23 mg/dL (5-40)
== END | disposition home or self-care (01) ==
LOC: LAB 10:55
PROVIDERS: PCP Family Medicine; Referring Provider Internal Medicine Cardiovascular Disease; Visit Provider Internal Medicine Cardiovascular Disease
DX: I25.10 Atherosclerotic heart disease of native coronary artery without angina pectoris (principal)
CPT/HCPCS: 36415; 80061

== ENCOUNTER → 2024-03-14 | Outpatient (CLI) | payer MEDICAID, SELFPAY ==
--- NOTE | 2024-03-14 06:41 | ECHOD_ITS ---
Reason For Study: PRE OP Procedure This was a 2D Doppler, Color Flow transthoracic echocardiogram. The study was technically difficult. Exam performed in department. Left Ventricle Normal LV size. Mild concentric left ventricular hypertrophy. The left ventricular ejection fraction is 65 %. Normal diastololic function. Right Ventricle Normal right ventricle. Atria The left atrium is severely enlarged. Normal right atrium. Mitral Valve Trivial mitral valve insufficiency. Tricuspid Valve Trivial tricuspid valve insufficiency. Normal pulmonary artery pressure. Aortic Valve Trisinus/trileaflet aortic valve. Pulmonic Valve The pulmonic valve is not well visualized. Great Vessels Normal sized aortic root. Pericardium/Pleural No pericardial effusion. MMode/2D Measurements & Calculations LVIDd: 5.6 cm IVSd: 1.0 cm LVOT diam: 2.1 cm LVIDs: 3.1 cm LVPWd: 1.2 cm LVOT area: 3.6 cm2 FS: 44.9 % LA dimension: 5.1 cm asc Aorta Diam: 2.9 cm LAV(MOD-bp): 37.2 ml LAV(MOD-bp) Indexed: 15.2 ml/m2 LAV(MOD-sp2): 23.5 ml LAV(MOD-sp4): 48.5 ml SV(MOD-sp4): 54.9 ml SV(sp4-el): 56.9 ml LVAd ap4: 28.6 cm2 LVLd ap4: 8.1 cm EDV(MOD-sp4): 84.0 ml EDV(sp4-el): 85.3 ml LVAs ap4: 14.7 cm2 LVLs ap4: 6.4 cm ESV(MOD-sp4): 29.1 ml ESV(sp4-el): 28.4 ml EF(MOD-sp4): 65.4 % EF(sp4-el): 66.7 % LA A4 area: 18.2 cm2 RA A4 area: 10.2 cm2 TAPSE: 2.0 cm Time Measurements MV dec time: 0.24 sec Doppler Measurements & Calculations MV E max trav: 87.1 cm/sec Lat Peak E' Trav: 13.5 cm/sec Med Peak E' Trav: 9.8 cm/sec MV A max trav: 59.3 cm/sec E/E' lat: 6.4 E/E' med: 8.9 MV E/A: 1.5 Ao V2 max: 149.8 cm/sec LV V1 max: 107.1 cm/sec MV dec slope: 362.1 cm/sec2 Ao max P.0 mmHg LV V1 max P.6 mmHg Ao V2 mean: 100.9 cm/sec LV V1 mean P.4 mmHg Ao mean P.7 mmHg LV V1 mean: 71.4 cm/sec Ao V2 VTI: 27.9 cm LV V1 VTI: 22.2 cm AV (velocity ratio): 0.80 INÉS(I,D): 2.9 cm2 INÉS(V,D): 2.6 cm2 SV(LVOT): 80.4 ml PA V2 max: 149.1 cm/sec TR max trav: 266.3 cm/sec PA max PG (full): 6.7 mmHg TR max P.4 mmHg ECHO/Echo Complete Interpretation Summary The study was technically difficult. Mild concentric left ventricular hypertrophy. The left ventricular ejection fraction is 65 %. The left atrium is severely enlarged. Ordering Physician: Bakari Diaz Referring Physician: Bakari Diaz Performed By: Loulou Blackman and Student
--- NOTE | 2024-03-14 13:44 | STRESSREP_ITS ---
Stress Test Report Date: 03/14/2024 Procedure: Pharmacologic stress nuclear imaging study Indications: Dyspnea on exertion Consent: Per the patient Procedure: The patient underwent pharmacologic (Regadenoson 0.4mg ) evaluation with a peak heart rate of 101 beats per minute (56%predicted maximal heart rate) and a peak blood pressure of 124/86 mmHg. The baseline ECG demonstrated sinus rhythm. The peak pharmacologic ECG demonstrated no ischemic changes. There were no cardiac dysrhythmias pretest, during pharmacologic infusion, or recovery. There was no complaint of chest discomfort during pharmacologic infusion or recovery. The patient was injected with 15.0 millicuries of technetium 99m Cardiolite and subsequently rest SPECT Cardiolite nuclear imaging was obtained in the horizontal long, vertical long, and short axis views. The patient underwent pharmacologic (Regadenoson) evaluation. The patient was injected with 44.9 millicuries of technetium 99m Cardiolite and subsequently stress SPECT Cardiolite nuclear imaging was obtained in the horizontal long, vertical long, and short axis views. A gated Cardiolite study at peak stress was obtained. The examination was stopped secondary to completion of protocol. Rest and stress SPECT Cardiolite nuclear imaging status post realignment, normalization, and attenuation correction demonstrate no fixed or reversible perfusion defects. There is end systolic thickening and brightening. The gated Cardiolite study demonstrates myocardial thickening and inward wall motion. The reported LVEF is 63%. Impression: 1. Pharmacologic (Regadenoson) evaluation 2. Peak pharmacologic ECG with no ischemic changes. 3. There were no cardiac dysrhythmias pretest, during pharmacologic infusion, or recovery. 5. Rest and stress SPECT Cardiolite nuclear imaging demonstrate relative uniform tracer uptake and myocardial perfusion appearing within normal limits. 6. The gated Cardiolite study reports an LVEF of 63%. This note was generated with [employer] software. It may contain incorrect words, spelling, and punctuation that were not noted in checking the note before signing.
== END | disposition home or self-care (01) ==
PROVIDERS: Referring Provider Internal Medicine Cardiovascular Disease; Visit Provider Internal Medicine Cardiovascular Disease
DX: Z01.810 Encounter for preprocedural cardiovascular examination (principal); I25.10 Atherosclerotic heart disease of native coronary artery without angina pectoris; I10 Essential (primary) hypertension; R06.09 Other forms of dyspnea
CPT/HCPCS: 78452; 93017; 93306; A9500; A4216; J2785

== ENCOUNTER → 2025-03-24 | Outpatient (CLI) | payer MEDICAID, SELFPAY ==
--- NOTE | 2025-03-24 12:48 | ECHOD_ITS ---
Reason For Study Reason For Study: DYSPNEA Procedure This was a 2D Doppler, Color Flow transthoracic echocardiogram. The study was technically difficult. Exam performed in department. Left Ventricle Normal size and thickness. The left ventricular ejection fraction is 65 %. No evidence for diastolic dysfunction. Right Ventricle Normal right ventricle. Atria The left atrium is moderately enlarged. Normal right atrium. Mitral Valve Trivial mitral valve insufficiency. Tricuspid Valve Trivial tricuspid valve insufficiency. Normal pulmonary artery pressure. Aortic Valve Trisinus/trileaflet aortic valve. Cannot exclude fistulous connection between the aortic root and left atrium. Recommend cardiac MRI for further evaluation. Pulmonic Valve The pulmonic valve is not well visualized. Great Vessels Normal sized aortic root. Pericardium/Pleural No pericardial effusion. MMode/2D Measurements & Calculations LVIDd: 4.4 cm IVSd: 1.1 cm LVOT diam: 2.0 cm LVIDs: 2.7 cm LVPWd: 0.95 cm LVOT area: 3.1 cm2 RVDd: 3.7 cm FS: 38.7 % LA dimension: 4.9 cm asc Aorta Diam: 3.0 cm LAV(MOD- bp): 43.8 ml LAV(MOD- bp) Indexed: 18.2 ml/m2 LAV(MOD- sp2): 38.6 ml LAV(MOD- sp4): 46.5 ml SV(MOD- sp4): 27.8 ml LVAd ap4: 20.3 cm2 LVAd ap2: 19.4 cm2 LVLd ap4: 7.2 cm LVLd ap2: 7.1 cm SI(MOD- sp4): 11.6 ml/m2 EDV(MOD-sp4): 46.2 ml EDV(MOD-sp2): 44.2 ml EDV(sp4-el): 48.2 ml EDV(sp2-el): 44.9 ml LVAs ap4: 11.5 cm2 LVAs ap2: 10.1 cm2 LVLs ap4: 6.3 cm LVLs ap2: 5.8 cm ESV(MOD-sp4): 18.4 ml ESV(MOD-sp2): 15.4 ml ESV(sp4-el): 17.9 ml ESV(sp2-el): 15.0 ml EF(MOD-sp4): 60.3 % EF(MOD-sp2): 65.1 % EF(sp4-el): 62.9 % SV(MOD-sp2): 28.8 ml SV(sp4-el): 30.3 ml Ao sinus diam: 3.1 cm SI(MOD-sp2): 12.0 ml/m2 LA dimension(2D): 3.9 cm LA A4 area: 16.5 cm2 RA A4 area: 9.1 cm2 TAPSE: 2.0 cm Time Measurements MV dec time: 0.21 sec Doppler Measurements & Calculations MV E max trav: 81.4 cm/sec Lat Peak E' Trav: 13.2 cm/sec Med Peak E' Trav: 10.4 cm/sec MV A max trav: 63.3 cm/sec E/E' lat: 6.2 E/E' med: 7.8 MV E/A: 1.3 MV dec slope: 385.5 cm/sec2 Ao V2 max: 156.1 cm/sec LV V1 max: 114.8 cm/sec Ao max P.7 mmHg LV V1 max P.3 mmHg Ao V2 mean: 109.8 cm/sec LV V1 mean P.9 mmHg Ao mean P.5 mmHg LV V1 mean: 78.7 cm/sec Ao V2 VTI: 30.7 cm LV V1 VTI: 24.5 cm AV (velocity ratio): 0.80 INÉS(I,D): 2.5 cm2 INÉS(V,D): 2.3 cm2 SV(LVOT): 75.3 ml PA V2 max: 143.5 cm/sec TR max trav: 183.4 cm/sec TR max P.5 mmHg ECHO/Echo Complete Interpretation Summary The study was technically difficult. The left ventricular ejection fraction is 65 %. No evidence for diastolic dysfunction. The left atrium is moderately enlarged. Cannot exclude fistulous connection between the aortic root and left atrium. Re commend cardiac MRI for further evaluation. Ordering Physician: Bakari Diaz Referring Physician: Bakari Diaz Performed By: Stephanie Robison, ERIC
== END | disposition home or self-care (01) ==
PROVIDERS: PCP Urology; Referring Provider Internal Medicine Cardiovascular Disease; Visit Provider Internal Medicine Cardiovascular Disease
DX: R07.9 Chest pain, unspecified (principal); I25.10 Atherosclerotic heart disease of native coronary artery without angina pectoris; R06.09 Other forms of dyspnea; I10 Essential (primary) hypertension; E78.5 Hyperlipidemia, unspecified; M35.00 Sjogren syndrome, unspecified
CPT/HCPCS: 93306

== ENCOUNTER → 2025-03-26 | Outpatient (CLI) | payer MEDICAID, SELFPAY ==
--- NOTE | 2025-03-26 13:18 | CT_ITS ---
PROCEDURE: LIMITED CHEST CT CARDIAC ONLY 03/26/2025 REASON FOR EXAM: CHEST PAIN TECHNIQUE: Procedure Code: [id number] Modality: CT Procedure: LIMITED CHEST CT CARDIAC ONLY One or more dose reduction techniques were used (e.g., Automated exposure control, adjustment of the mA and/or kV according to patient size, use of iterative reconstruction technique). RADIATION DOSE SUMMARY: DLP: 2384.19 mGycm COMPARISON: None. CT/Limited Chest CT Cardiac Only IMPRESSION: Limited imaging of the lungs demonstrates no acute process. No pleural effusion or pneumothorax is seen in visualized areas. No adenopathy is noted. The visualized upper abdomen demonstrates no significant abnormality. Reading Location: [id number]
[2025-03-26 13:50] VITALS: BP 117/71; PULSE 72; RESP 16; TEMP 36.6; O2SAT 98; BMI 57.4
[2025-03-26 13:53] VITALS: BP 117/71; PULSE 72
[2025-03-26] MEDS: Nitroglycerin SL (ED/IMG/CATH) 0.4 MG TABLET SL (13:53)
[2025-03-26 14:12] VITALS: BP 112/73; PULSE 76; RESP 16; O2SAT 97
--- NOTE | 2025-03-26 18:41 | CCTA.WCONT ---
CCTA w/Cont Coronary Arteries Date of Study:: 03/26/25 Chest pain Coronary Calcium Scoring: High-resolution Computed Tomographic imaging of the chest was performed on [], with particular attention paid to the coronary arteries. Intravenous contrast agent was administered per protocol and images reconstructed and displayed. Image quality was suboptimal due to patient body habitus LEFT MAIN CORONARY ARTERY: Arises from the left coronary cusp with no significant stenosis noted. The vessel bifurcates to the left anterior descending artery and left circumflex artery. [] LEFT ANTERIOR DESCENDING CORONARY ARTERY: Left anterior descending artery is a medium size vessel. There is mild to moderate calcification noted in the proximal region with probably mild to moderate eccentric plaquing noted. The distal vessel was noted to be small. [] LEFT CIRCUMFLEX CORONARY ARTERY: Nondominant vessel with minimal plaquing and mild luminal irregularities. [] RIGHT CORONARY ARTERY: Dominant right coronary artery arising from the right coronary cusp with no significant atherosclerotic plaquing and all luminal irregularities present. [] THORACIC AORTA: [] PULMONARY ARTERY: [] LEFT ATRIUM/APPENDAGE: [] MITRAL VALVE: [] AORTIC VALVE: [] LEFT VENTRICLE: [] CORONARY CALCIUM SCORE: 213 [] Findings Coronary Artery Left Main (LM): 0 Left Anterior Descending (LAD): 164 Left Circumflex (LCX): 47.2 Right Coronary Artery (RCA): 0.99 Total Agatston Score: 212.19 Percentile Ranking: Greater than 90th percentile Calcium Scoring Interpretation: Different methods to categorize the overall amount of coronary plaque. Overall amount CAC SIS Visual of coronary plaque P1 Mild -100 <2 1-2 vessels with mild amount of plaque P2 Moderate 101-300 3-4 1-2 vessels with moderate amount, 3 vessels with mild amount of plaque P3 Severe 301-999 5-7 3 vessels with moderate amount, 1 vessel with severe amount of plaque P4 Extensive >1000 >8 2-3 vessels with severe amount of plaque Calcium Score: Moderate: 1-2 vessels w/moderate amt, 3 vessels w/mild amt of plaque Conclusion: Premature atherosclerotic plaquing with mild plaque disease noted in the LAD and circumflex artery with no high-grade stenosis present.
== END | disposition home or self-care (01) ==
LOC: CT 13:18
PROVIDERS: PCP Urology; Referring Provider Internal Medicine Cardiovascular Disease; Visit Provider Internal Medicine Cardiovascular Disease
DX: R07.9 Chest pain, unspecified (principal); I25.10 Atherosclerotic heart disease of native coronary artery without angina pectoris; R06.09 Other forms of dyspnea; I10 Essential (primary) hypertension
CPT/HCPCS: 75571; 75574; 76380; Q9967